=== PATIENT | male | born 1980 | race Caucasian/White ===

== ENCOUNTER 2024-06-08 06:04 | Emergency (ER) | payer MEDICARE, SELFPAY ==
[2024-06-08 06:05] VITALS: BP 133/87; PULSE 96; RESP 22; TEMP 36.7; O2SAT 98; BMI 23.1
--- NOTE | 2024-06-08 06:06 | EX.ED.DYSGE1 ---
HPI History of Present Illness Chief Complaint: Rash Informant: patient and EMS Narrative Narrative: EMS brings this 44-year-old male in at 6 AM for an itchy rash on his back that he noticed this past day. They state that he was kicked out of the [address], police were called to enforce this, and at that time he asked them to take him to the hospital for this rash so EMS was called. EMS states that he is well. Patient shows me a rash on his back that is itchy and nontender. He denies any other symptoms. States he has some itching on his thighs as well. States he recently got these close from the [employer]. He denies any syncope or systemic symptoms or intraoral symptoms. [facility] Medical History (Updated 06/08/24 @ 06:09 by Cheryl Mckeon) PTSD (post-traumatic stress disorder) no medical history Home Medications ?Medication ?Instructions ?Recorded ?Last Taken ?Type NK 06/08/24 Unknown History Allergy/AdvReac Type Severity Reaction Status Date / Time Penicillins AdvReac Intermediate Nausea Verified 06/08/24 06:08 Social History Smoking Status: Current every day smoker tobacco type: cigarettes and e-cigarettes ROS ROS ED Constitutional Constitutional ED: Denies chills or fever(s) ENT ENT ED: Denies throat swelling Integumentary Reports pruritus and rash; Denies skin pain EXAM Physical Exam Const Positive well nourished and well developed General Appearance ED: well developed and NAD HEENT normocephalic and atraumatic Neck full ROM Resp normal respiratory effort Extremity normal to inspection General Extremety ED: Negative for edema General Extremity: Negative for edema Neuro oriented x3, CN's II-XII intact bilaterally and no sensory deficits noted Sensorium / Orientation: awake and alert Motor Exam: strength 5/5 throughout Skin no wounds Skin Narrative: Patient has 2 nontender raised urticaria near each other in his right low back MDM MDM MDM Narrative Medical decision making narrative: Patient was given a dose of Benadryl and advised to use topical hydrocortisone 1% [id number] as needed, and I am in agreement that his close from [employer] may be the source of his urticaria. Discharged. Discharge Plan Triage Chief Complaint: Rash ED Provider: Anup Evans Dx/Rx/DC Orders Clinical Impression: Allergic urticaria Instructions: ED Hives (Adult) Referrals: [facility] [Outside] (if you need doctor/primary care) Activity Restrictions/Additional Instructions: may get OTC hydrocortisone 1% cream to spread on affected areas, twice daily as needed. Print Language: [place] Disposition Disposition: Home, Self Care
[2024-06-08] MEDS: DiphenhydrAMINE 25 MG Capsule 50 MG PO (06:16)
== END 2024-06-08 06:27 | disposition home or self-care (01) ==
LOC: ED 06:24
PROVIDERS: Emergency Provider Emergency Medicine; Visit Provider Emergency Medicine
DX: L50.0 Allergic urticaria (principal); F17.210 Nicotine dependence, cigarettes, uncomplicated; F17.290 Nicotine dependence, other tobacco product, uncomplicated
CPT/HCPCS: 99284